=== PATIENT | male | born 1990 | race Caucasian/White ===

== ENCOUNTER 2016-12-04 15:28 | Emergency (ER) | payer SELFPAY ==
[~2016-12-04] VITALS: Ht 200.7 cm; Wt 150.0 kg
[2016-12-04] MEDS ORDERED: HYDROmorphone 1 MG/ML, 1ML IVPush PRN (16:00)
[2016-12-04] MEDS ORDERED: SODIUM CHLORIDE FLUSH 10ML SYR IVF ONE (16:00)
[2016-12-04] MEDS ORDERED: HYDROmorphone 1 MG/ML, 1ML ONE (16:02)
[2016-12-04] MEDS ORDERED: PROPOFOL 10 MG/ML, 20ML IVPush ONE (17:00)
[2016-12-04] MEDS ORDERED: PROPOFOL 10 MG/ML, 20ML ONE (17:06)
[2016-12-04 18:00] VITALS: BP 140/89
== END 2016-12-04 18:44 | disposition home or self-care (01) ==
LOC: ED 18:35
DX: T84.022A Instability of internal right knee prosthesis, initial encounter (principal); Y79.2 Prosthetic and other implants, materials and accessory orthopedic devices associated with adverse incidents
CPT/HCPCS: 27550; 73564; 96374; 99285; J1170